=== PATIENT | female | born 1955 | race Caucasian/White ===

== ENCOUNTER 2020-02-10 11:37 | Emergency (ER) | payer MEDICARE, SELFPAY ==
--- NOTE | ~2020-02-10 | XR_ITS ---
[[id number] ] INDICATION: Right rib pain TECHNIQUE: Frontal projection of the upper right ribs, frontal projection of the lower right ribs, ob lique projection of all the right ribs, frontal inspiratory chest x-ray for interpretation. FINDINGS: There are no displaced rib fractures identified. There are no soft tissue abnormality see n. The lungs are clear. There are gallstones. IMPRESSION: 1:No displaced rib fractures. 2:Cholelithiasis. Reviewed, dictated and finalized at location A. [employer]
--- NOTE | ~2020-02-10 | XR_ITS ---
XR elbow RT min 3V 02/10/2020 12:34 Indication: Right elbow pain after fall Procedure: 4 views right elbow Comparison: No prior studies for comparison. Findings: There is a mildly displaced radial head fracture. There is a joint effusion. Mild degenerat adeline changes of the elbow. No foreign bodies. Impression: 1: Mildly displaced radial head fracture. Reviewed, dictated and finalized at location A. [employer] Impression: 1: Mildly displaced radial head fracture.
[2020-02-10 11:44] VITALS: BP 140/71; PULSE 76; RESP 16; TEMP 36.1; O2SAT 100
--- NOTE | 2020-02-10 13:10 | ED.GENADULT ---
HPI - General Adult General Chief complaint: Fall Stated complaint: right elbow injury Time Seen by Provider: 02/10/20 12:09 Source: patient Mode of arrival: ambulatory Limitations: no limitations History of Present Illness HPI narrative: Patient presents with chief complaint of pain to the right elbow and to the right radius that she sustained after tripping and falling while trying to move a pallet last night. Patient states that she applied ice but the area was still painful today and she is unable to fully flex it so she came to the emergency department. Patient also reports that the pellet pushed up against her right lower ribs. Patient denies being short of breath patient or have any chest pain. She Denies head impact, headache or loss of consciousness. Patient denies being on any blood thinners. Patient denies any other injuries. Related Data Allergies Allergy/AdvReac Type Severity Reaction Status Date / Time No Known Allergies Allergy Verified 02/10/20 11:49 Review of Systems Review of Systems: Narrative: CONSTITUTIONAL: Denies fever, chills, or sweats. EYES: Denies visual changes, redness, or discharge. ENT: Denies rhinorrhea, congestion, sore throat, or otalgia. CARDIOVASCULAR: Denies chest pain, palpitations, or edema. RESPIRATORY: Denies cough or dyspnea. GASTROINTESTINAL: Denies abdominal pain, nausea, vomiting, or diarrhea. GENITOURINARY: Denies dysuria or hematuria. SKIN: Denies rash or itching. MUSCULOSKELETAL: Reports right rib and right elbow pain denies back pain or myalgia. NEUROLOGIC: Denies headache, numbness, dizziness, or weakness. PSYCHIATRIC: Denies anxiety or depression. PMFSH Family History Family History Mother Hypertension Cerebrovascular accident Family history of diabetes mellitus in first degree relative Family history of coronary artery disease Sibling Hypertension Father Family history of lymphoma Social History Social History Smoking status: Never smoker Alcohol intake: never Substance use: never Substance use type: does not use Gender identity (if verbalized by the patient): Female Exam Narrative: Exam Narrative: GENERAL: Well-appearing, well-nourished, and in no acute distress. HEAD: Normocephalic, atraumatic. EYES: PERRLA and EOMI. CHEST: Mild tenderness with palpation of lower left ribs without significant ecchymosis. no flail chest. No tachypnea or issues breathing. Clear to auscultation. No respiratory distress. No wheezes rales or rhonchi HEART: Regular rate and rhythm. ABDOMEN: Soft, nontender, nondistended. EXTREMITIES: Patient able to supinate and pronate right wrist. Patient reports some discomfort with supination. Patient refuses to fully flex right elbow due to pain. No abrasion or ecchymosis. SKIN: Warm, dry, no rash. NEURO: No focal deficits. Alert and oriented x3. PSYCH: Normal mood and affect. Course Vital Signs Vital signs: Vital Signs Temperature 97.0 F L 02/10/20 11:44 Pulse Rate 76 02/10/20 11:44 Respiratory Rate 16 02/10/20 11:44 Blood Pressure 140/71 02/10/20 11:44 Pulse Oximetry 100 02/10/20 11:44 Temperature 97.0 F L 02/10/20 11:44 Pulse Rate 78 02/10/20 15:26 Respiratory Rate 18 02/10/20 15:26 Blood Pressure 140/79 02/10/20 15:26 Pulse Oximetry 99 02/10/20 15:26 Procedures Orthopedic Splinting/Casting Injury #1: Side: right Upper Extremity Injury Location: elbow Upper Extremity Immobilizer: posterior splint Splint: customized in ED Pre-Procedure Neuro Vascular Exam: normal Post-Procedure Neuro Vascular Exam: normal Other Orthopedic Equipment: other (Sling) Additional Comments: Patient tolerated splinting well and reports that it is comfortable and feels supported. Discharge and follow-up instructions discussed. Patient verbalized understan
[2020-02-10 15:26] VITALS: BP 140/79; PULSE 78; RESP 18; O2SAT 99
== END 2020-02-10 15:27 | disposition home or self-care (01) ==
PROVIDERS: Emergency Provider Family Medicine; PCP Family Medicine
DX: S53.004A Unspecified dislocation of right radial head, initial encounter (principal); W01.0XXA Fall on same level from slipping, tripping and stumbling without subsequent striking against object, initial encounter
CPT/HCPCS: 29105; 71101; 73080; 99284; A4565

== ENCOUNTER 2021-06-21 14:49 | Outpatient (CLI) | payer MEDICARE, SELFPAY ==
--- NOTE | ~2021-06-21 | US_ITS ---
EXAMINATION: US venous doppler [facility] EXAM DATE: 06/21/2021 15:35 INDICATION: M79.669 - Pain in unspecified lower leg. TECHNIQUE: Multiple grayscale, color flow and Doppler images of the lower extremity deep venous syste ms bilaterally were obtained and reviewed. Comparison is made to prior examination from 04/12/2015. FINDINGS: Right side: The right common femoral, femoral and profunda veins demonstrate normal color flow, respi ratory variation, augmentation and compressibility. Compressibility, color flow confirmed within the right popliteal, posterior tibial, peroneal, and greater saphenous veins. Left side: The left common femoral, femoral and profunda veins demonstrate normal color flow, respira tory variation, augmentation and compressibility. Compressibility, color flow confirmed within the l eft popliteal, posterior tibial, peroneal, and greater saphenous veins. IMPRESSION: No lower extremity deep venous thrombosis bilaterally. Reviewed, dictated and finalized at location A.
== END 2021-06-21 14:50 | disposition home or self-care (01) ==
PROVIDERS: PCP Family Medicine; Visit Provider Nurse Practitioner Family
DX: M79.669 Pain in unspecified lower leg (principal); M79.89 Other specified soft tissue disorders
CPT/HCPCS: 93970

== ENCOUNTER → 2021-07-12 13:26 | Outpatient (CLI) | payer MEDICARE, SELFPAY ==
--- NOTE | ~2021-07-12 | XR_ITS ---
EXAMINATION: XR lumbar spine min 4V DATE: 07/12/2021 13:54 INDICATION: Low back pain TECHNIQUE: Anteroposterior, lateral, and bilateral oblique views of the lumbar spine, and cone-down l ateral view of the lumbosacral junction were obtained. COMPARISON: None. FINDINGS: Bone alignment is normal. There is no fracture. There is moderate loss of intervertebral di sc space height throughout the lumbar spine. The vertebral body heights are maintained. Small degener ative osteophytes project from the anterior endplates of multiple vertebral bodies. There is severe m ultilevel facet osteoarthritis. Cholelithiasis is noted. There are changes of right total hip arthrop lasty. IMPRESSION: 1. Severe lumbar spondylosis without acute findings. Reviewed, dictated and finalized at location F.
== END ==
PROVIDERS: PCP Family Medicine; Visit Provider Family Medicine
DX: M47.896 Other spondylosis, lumbar region (principal)
CPT/HCPCS: 72110

== ENCOUNTER 2022-04-21 14:31 | Outpatient (CLI) | payer MEDICARE, SELFPAY ==
--- NOTE | ~2022-04-21 | MR_ITS ---
EXAMINATION: MR humerus LT wo con DATE: 04/21/2022 16:13 INDICATION: Left upper arm pain. Pulled muscle. TECHNIQUE: Magnetic resonance imaging (MRI) of the left humerus/upper arm was performed without intra venous contrast. A marker was placed over the mass. Sequences included axial T1-weighted FSE, axial T2-weighted FS FSE, coronal T1-weighted FSE, coronal T2-weighted FS FSE, sagittal T1-weighted FSE and sagittal T2-weighted FS FSE. Precontrast axial T1-weighted FS FSE and post contrast axial, sagittal and coronal T1-weighted FS FSE were also obtained. COMPARISON: None. FINDINGS: There is a full-thickness tear of the long head biceps tendon with the distal tear margin retracted p ossibly a 2 cm colon to the level of the inferior margin of the intertubercular groove. The proximal intra-articular portion of the tendon appears to be reflected anteromedially into the deep subscapula r recess. There is muscular edema throughout the long head of the biceps brachii muscle and small aleksandra unt of proximal epimysial edema. Normal signal in the short head of the muscle. The biceps brachii te ndon appears to remain intact with mild tendinopathy at its radial insertion but without evident tear . Small hypertrophic osteophytes along the lateral floor of the intertubercular groove. There is a sm all likely reactive glenohumeral joint effusion. Likely chronic degeneration of the posterior glenoid labrum with replacement of the majority the labral tissue by small marginal osteophytes along the po sterior rim of the glenoid. Bone marrow signal is normal throughout with no fracture or pathologic ma rrow replacing process. No elbow joint effusion. IMPRESSION: 1. Full-thickness tear and distal retraction of the long head biceps tendon. Reviewed, dictated and finalized at location A. [employer]
== END 2022-04-21 14:32 | disposition home or self-care (01) ==
PROVIDERS: PCP Family Medicine; Visit Provider Nurse Practitioner Family
DX: S46.112A Strain of muscle, fascia and tendon of long head of biceps, left arm, initial encounter (principal); X58.XXXA Exposure to other specified factors, initial encounter
CPT/HCPCS: 73218

== ENCOUNTER 2022-05-27 12:08 | Emergency (ER) | payer MEDICARE, SELFPAY ==
[2022-05-27 12:08] VITALS: BP 160/73; PULSE 75; RESP 16; TEMP 37; O2SAT 100
--- NOTE | 2022-05-27 12:52 | ED.GENADULT ---
HPI - General Adult General Chief complaint: Skin/Abscess/Foreign Body Stated complaint: FACIAL SWELLING Time Seen by Provider: 05/27/22 12:21 History of Present Illness HPI narrative: 66-year-old female presented to the emergency department for evaluation of a rash with left-sided facial pain. No change in vision. Patient states she began having the rash yesterday and the pain began worsening today. Patient has no prior history of shingles. Patient denies having her shingles vaccine. Related Data Allergies Allergy/AdvReac Type Severity Reaction Status Date / Time ibuprofen AdvReac Intermediate Nausea Verified 05/27/22 12:26 Review of Systems Review of Systems: All systems reviewed & are unremarkable except as noted in HPI and below PMFSH Past Medical History Medical History Chronic headache Foot swelling Fracture of radial head, right, closed High cholesterol Hypertension Obesity (BMI 35.0-39.9 without comorbidity) Surgical History Surgical History History of right hip replacement Dr. Villavicencio Family History Family History Mother Hypertension Cerebrovascular accident Family history of diabetes mellitus in first degree relative Family history of coronary artery disease Sibling Hypertension Father Family history of lymphoma Other Family history of high cholesterol Family history of lung disease Heart disease Social History Social History Smoking status: Never smoker Alcohol intake: never Substance use: never Substance use type: does not use Living arrangements: with family Occupation/Education: retired Gender identity (if verbalized by the patient): Female Exam Narrative: APPEARANCE: Well appearing, no pain, no distress, well-nourished. HEAD: normocephalic, atraumatic. EYES: PERRLA/EOMI, conjunctivae clear. No fluorescein uptake over the cornea. No dendritic appearance. NOSE: Normal no drainage, vesicular rash on left side of nose EARS:TMS clear with good light reflex. THROAT: Pharynx clear, no exudate. NECK: Supple. No adenopathy, no masses. RESPIRATORY: Airway patent, respirations nonlabored. Clear to auscultation bilaterally, no rales, rhonchi, wheezing. CARDIOVASCULAR: Regular rate and rhythm without murmurs rubs or gallops. ABDOMINAL: Soft, nontender, nondistended, normal bowel sounds MUSCULOSKELETAL: Moves all extremities. Strength/ROM intact, No edema, No calf tenderness. NEURO: Alert. Cranial nerves II through XII intact. Grossly intact SKIN: Warm, dry. Normal Color. Vesicular rash on left side of nose. Areas of left-sided facial pain with no current rash. Course Course Emergency Course: 66-year-old female with rash on left nose that is concerning for shingles. On patient's exam patient had no fluorescein uptake. Patient denies any change in vision. Low concern for ocular shingles at this time. Patient was started on valacyclovir for suspected shingles rash. Patient was encouraged of close follow-up with ophthalmology. All questions concerns were addressed. Patient was also encouraged to return to the emergency department if she had any worsening symptoms questions or concerns. Patient was stable at time of discharge. Patient was afebrile with a leukocytosis of 10.8. Patient's CMP was within normal limits. Vital Signs Vital signs: Vital Signs Temperature 98.6 F 05/27/22 12:08 Pulse Rate 75 05/27/22 12:08 Respiratory Rate 16 05/27/22 12:08 Blood Pressure 160/73 H 05/27/22 12:08 Pulse Oximetry 100 05/27/22 12:08 Temperature 98.6 F 05/27/22 12:08 Pulse Rate 74 05/27/22 14:16 Respiratory Rate 16 05/27/22 14:16 Blood Pressure 153/85 H 05/27/22 14:16 Pulse Oximetry 97 05/27/22 14:16 Medical Decision Ted
[2022-05-27 13:06] LABS: Basophils Absolute Auto 0.1 K/mm3 (0.0-0.1); Basophils Percent Auto 0.6 % (0.2-1.2); Eosinophils Absolute Auto 0.1 K/mm3 (0-0.3); Eosinophils Percent Auto 0.7 % (0-4.4); Hemoglobin 11.9 g/dL (12.0-15.0); Immature Granulocyte Absolute 0.02 K/mm3 (0.00-0.031); Immature Granulocyte Percent A 0.2 % (0-0.5); Lymphocytes Absolute Auto 2.13 K/mm3 (0.9-3.2); Lymphocytes Percent Auto 19.8 % (18.3-44.2); Mean Corpuscular HGB Conc 32.2 g/dl (32-36); Mean Corpuscular Hemoglobin 29.3 pg (26-34); Mean Corpuscular Volume 91.1 fl (80-100); Mean Platelet Volume 9.9 fl (7.4-10.4); Monocytes Absolute Auto 0.8 K/mm3 (0.1-0.6); Monocytes Percent Auto 7.3 % (2.6-8.5); Neutrophils Absolute Auto 7.7 K/mm3 (1.3-6.7); Neutrophils Percent Auto 71.4 % (45.5-73.1); Platelet Count Result 260 k/mm3 (150-375); Red Blood Count 4.06 M/mm3 (4.2-5.4); Red Cell Distribution Width 13.5 % (11.5-14.5); White Blood Count 10.8 K/mm3 (4.5-10.0)
[2022-05-27] MEDS: TETRACAINE HCL 0.5% OPHTH SOLN 4 ML BTL 1 DROP EACH EYE (13:15)
[2022-05-27] MEDS: FLUORESCEIN SOD 1 MG/STRIP EACH EYE (13:15)
[2022-05-27 13:17] LABS: Alanine Aminotransferase 18 U/L (6-35); Albumin Level 4.2 g/dL (3.5-5.1); Alkaline Phosphatase 92 U/L (38-126); Anion Gap 7 mmol/L (8-16); Aspartate Amino Transferase 25 U/L (14-36); Bilirubin,Total 1.5 mg/dL (0.2-1.3); Blood Urea Nitrogen 15 mg/dL (7-17); Carbon Dioxide 29 mmol/L (22-30); Chloride 103 mmol/L (98-107); Estimated CRCL calculation 91 ml/min; Estimated Glomerular Filt Rate > 60; Glucose 89 mg/dL (65-110); Potassium 3.6 mmol/L (3.4-5.0); Sodium 139 mmol/L (137-145)
[2022-05-27] MEDS: valACYclovir HCL 500 MG TABLET 1000 MG PO (14:15)
[2022-05-27 14:16] VITALS: BP 153/85; PULSE 74; RESP 16; O2SAT 97
== END 2022-05-27 14:22 | disposition home or self-care (01) ==
PROVIDERS: Emergency Provider Emergency Medicine; PCP Family Medicine
DX: B02.9 Zoster without complications (principal); R21 Rash and other nonspecific skin eruption; I10 Essential (primary) hypertension; E78.5 Hyperlipidemia, unspecified
CPT/HCPCS: 36415; 80053; 85025; 99283; A9270

== ENCOUNTER 2023-01-17 16:12 | Emergency (ER) | payer MEDICARE, SELFPAY ==
[2023-01-17] VITALS (18 sets, daily range): BP systolic 124–143; BP diastolic 48–87; PULSE 66–72; RESP 12–20; TEMP 36.6; O2SAT 96–100
[2023-01-17] MEDS: diazePAM INJ (*CRX) 10 MG/2 ML SYRINGE 5 MG IV PUSH (16:40)
[2023-01-17] MEDS: ONDANSETRON INJ 4 MG/2 ML VIAL IV PUSH (16:40)
[2023-01-17] MEDS: SODIUM CHLORIDE 0.9% IV 1,000 ML 999 ML IV CONT (16:40)
[2023-01-17] MEDS: MECLIZINE HCL 25 MG TABLET PO (16:40)
[2023-01-17 16:46] LABS: Basophils Absolute Auto 0.1 K/mm3 (0.0-0.1); Basophils Percent Auto 0.8 % (0.2-1.2); Eosinophils Absolute Auto 0.1 K/mm3 (0-0.3); Hematocrit 39.7 % (37.0-47.0); Hemoglobin 12.6 g/dL (12.0-15.0); Immature Granulocyte Absolute 0.01 K/mm3 (0.00-0.031); Immature Granulocyte Percent A 0.1 % (0-0.5); Lymphocytes Absolute Auto 2.31 K/mm3 (0.9-3.2); Lymphocytes Percent Auto 30.1 % (18.3-44.2); Mean Corpuscular HGB Conc 31.7 g/dl (32-36); Mean Corpuscular Hemoglobin 28.7 pg (26-34); Mean Corpuscular Volume 90.4 fl (80-100); Mean Platelet Volume 10.3 fl (7.4-10.4); Monocytes Absolute Auto 0.5 K/mm3 (0.1-0.6); Neutrophils Absolute Auto 4.8 K/mm3 (1.3-6.7); Platelet Count Result 287 k/mm3 (150-375); Red Blood Count 4.39 M/mm3 (4.2-5.4); White Blood Count 7.7 K/mm3 (4.5-10.0)
[2023-01-17 16:57] LABS: Alanine Aminotransferase 20 U/L (6-35); Albumin Level 4.4 g/dL (3.5-5.1); Alkaline Phosphatase 90 U/L (38-126); Anion Gap 5 mmol/L (8-16); Aspartate Amino Transferase 29 U/L (14-36); Bilirubin,Total 1.4 mg/dL (0.2-1.3); Blood Urea Nitrogen 13 mg/dL (7-17); Calcium 9.5 mg/dL (8.4-10.2); Carbon Dioxide 33 mmol/L (22-30); Chloride 97 mmol/L (98-107); Estimated CRCL calculation 76 ml/min; Estimated Glomerular Filt Rate > 60; Glucose 130 mg/dL (65-110); Potassium 3.2 mmol/L (3.4-5.0); Sodium 135 mmol/L (137-145)
--- NOTE | 2023-01-17 19:29 | ED.GENADULT ---
HPI - General Adult General Chief complaint: Dizziness Stated complaint: dizziness, nausea Time Seen by Provider: 01/17/23 16:27 History of Present Illness HPI narrative: Patient is a 67-year-old female who presents ER with dizziness. Sudden onset when she got [place] from [employer] Spinning and made her nauseous and vomit. No numbness or weakness to an arm or leg. No slurred speech. Symptoms are worse if she lays back or tries to look up. Mild sinus congestion. No sore throat or cough. No tinnitus. Related Data Allergies Allergy/AdvReac Type Severity Reaction Status Date / Time ibuprofen AdvReac Intermediate Nausea Verified 05/29/22 10:29 Review of Systems Review of Systems: All systems reviewed & are unremarkable except as noted in HPI and below Constitutional: Constitutional: Denies chills, Denies fatigue and Denies fever(s) ENT: Reports dizziness, Reports nasal congestion and Denies sore throat Cardiovascular: Cardiovascular: Denies chest pain and Denies radiating jaw, neck or arm pain Respiratory: Respiratory: Denies cough and Denies dyspnea Gastrointestinal: Gastrointestinal: Denies abdominal pain, Reports nausea and Reports vomiting Neurologic: Reports dizziness, Denies headache(s), Denies focal weakness and Denies numbness PMFSH Past Medical History Medical History Chronic headache Foot swelling Fracture of radial head, right, closed High cholesterol Hypertension Obesity (BMI 35.0-39.9 without comorbidity) Surgical History Surgical History History of right hip replacement Dr. Villavicencio Family History Family History Mother Hypertension Cerebrovascular accident Family history of diabetes mellitus in first degree relative Family history of coronary artery disease Sibling Hypertension Father Family history of lymphoma Other Family history of high cholesterol Family history of lung disease Heart disease Social History Social History Smoking status: Never smoker Alcohol intake: never Substance use: never Substance use type: does not use Living arrangements: with family Occupation/Education: retired Gender identity (if verbalized by the patient): Female Exam Narrative: GENERAL: Well-appearing, well-nourished, and in no acute distress. HEAD: Normocephalic, atraumatic. EYES: PERRL and right gaze nystagmus. ENT: Mucous membranes moist. Air-fluid levels behind the eardrums bilaterally. NECK: Supple. CHEST: Clear to auscultation. No respiratory distress. HEART: Regular rate and rhythm. Normal peripheral pulses. EXTREMITIES: Normal range of motion. No edema. SKIN: Warm, dry, no rash. NEURO: Alert and oriented x3. PSYCH: Normal mood and affect. Course Course Emergency Course: Patient markedly improved after fluids/Valium/meclizine. Ambulates with a steady gait. Feels comfortable for discharge home. Vital Signs Vital signs: Vital Signs Temperature 97.8 F 01/17/23 16:15 Pulse Rate 66 01/17/23 16:15 Respiratory Rate 16 01/17/23 16:15 Blood Pressure 132/72 01/17/23 16:15 Pulse Oximetry 98 01/17/23 16:15 Temperature 97.8 F 01/17/23 16:15 Pulse Rate 72 01/17/23 19:39 Respiratory Rate 15 01/17/23 19:39 Blood Pressure 124/48 L 01/17/23 19:39 Pulse Oximetry 100 01/17/23 19:39 Medical Decision Making Vital Signs Vital Signs: Vital Signs Temperature 97.8 F 01/17/23 16:15 Pulse Rate 66 01/17/23 16:15 Respiratory Rate 16 01/17/23 16:15 Blood Pressure 132/72 01/17/23 16:15 Pulse Oximetry 98 01/17/23 16:15 Temperature 97.8 F 01/17/23 16:15 Pulse Rate 72 01/17/23 19:39 Respiratory Rate 15 01/17/23 19:39 Blood Pressure 124/48 L 01/17/23 19:39 Pulse Oximetr
== END 2023-01-17 19:41 | disposition home or self-care (01) ==
PROVIDERS: Emergency Provider Emergency Medicine; PCP Family Medicine
DX: R42 Dizziness and giddiness (principal); I10 Essential (primary) hypertension; E78.00 Pure hypercholesterolemia, unspecified; E66.9 Obesity, unspecified; Z68.33 Body mass index [BMI] 33.0-33.9, adult; Z96.641 Presence of right artificial hip joint
CPT/HCPCS: 36415; 80053; 85025; 96361; 96374; 96375; 99284; A9270; J2405; J3360; J7030